=== PATIENT | female | born 1955 | race Caucasian/White ===

== ENCOUNTER 2020-11-11 07:17 | Outpatient (CLI) | payer OTHER | END 2020-11-11 07:28 | disposition home or self-care (01) | LOC: RAD 07:17 | DX: M43.8X6 Other specified deforming dorsopathies, lumbar region (principal) ==

== ENCOUNTER 2020-11-22 07:31 | Outpatient (CLI) | payer OTHER | END 2020-11-22 07:39 | disposition home or self-care (01) | LOC: SONOGRAMA 07:31 → MAMO-SONO 09:00 | PROVIDERS: ATTEND Urology | DX: N20.0 Calculus of kidney (principal) ==

== ENCOUNTER 2021-11-10 09:22 | Outpatient (CLI) | payer OTHER | END 2021-11-10 09:27 | disposition home or self-care (01) | LOC: RAD 09:22 | DX: M41.34 Thoracogenic scoliosis, thoracic region (principal) ==

== ENCOUNTER 2022-11-10 07:38 | Outpatient (CLI) | payer OTHER | END 2022-11-10 07:46 | disposition home or self-care (01) | LOC: RAD 07:38 | DX: M41.9 Scoliosis, unspecified (principal) ==

== ENCOUNTER 2023-05-14 10:55 | Outpatient (CLI) | payer OTHER | END 2023-05-14 11:00 | disposition home or self-care (01) | LOC: RAD 10:55 | DX: M41.25 Other idiopathic scoliosis, thoracolumbar region (principal) ==

== ENCOUNTER 2023-11-09 09:25 | Outpatient (CLI) | payer OTHER | END 2023-11-09 09:28 | disposition home or self-care (01) | LOC: RAD 09:25 | DX: M41.9 Scoliosis, unspecified (principal) ==

== ENCOUNTER 2024-12-01 11:02 | Outpatient (CLI) | payer OTHER | END 2024-12-01 11:05 | disposition home or self-care (01) | LOC: RAD 11:02 | DX: M41.24 Other idiopathic scoliosis, thoracic region (principal) ==